=== PATIENT | female | born 1985 | race Caucasian/White ===

== ENCOUNTER 2019-03-04 14:53 | Emergency (ER) | payer OTHER ==
[~2019-03-04] VITALS: Ht 160 cm; Wt 65.3 kg
[2019-03-04 15:26] VITALS: Ht 160 cm; Wt 65.3 kg
[2019-03-04 18:32] VITALS: BP 103/56
== END 2019-03-04 18:32 | disposition home or self-care (01) ==
LOC: ED 14:53
DX: B86 Scabies (principal)